=== PATIENT | male | born 1950 | race Caucasian/White ===

== ENCOUNTER 2018-07-30 17:20 | Emergency (ER) | payer MEDICARE, OTHER ==
[2018-07-30 18:17] LABS: CHLORIDE,CL 95 mmol/L (98-107); SODIUM,NA 130 mmol/L (136-145)
[2018-07-30 18:20] VITALS: BP 138/74
[2018-07-30] MEDS ORDERED: Sodium Chloride 0.9% 10 ML Syringe FLUSH PRN (18:32)
[2018-07-30] MEDS ORDERED: Sodium Chloride 0.9% 1,000 ML IV ONE (18:48)
[2018-07-30] MEDS ORDERED: Sodium Bicarbonate 8.4% 50 MEQ/50 ML Syringe IVPUSH ONE (19:17)
[2018-07-30] MEDS ORDERED: 25% Dextrose in Water 10 ML Syringe IVPUSH ONE (19:24)
[2018-07-30] MEDS ORDERED: Insulin Regular, Human 100 Units/ML 3 ML Vial IV ONE (19:25)
[2018-07-30] MEDS ORDERED: Calcium Gluconate 1 GM in Sodium Chloride 0.9% 100 ML IV ONE (19:25)
[2018-07-30] MEDS ORDERED: Dextrose 5%-0.9% NaCl 1,000 ML IV SCH (19:30)
--- NOTE | 2018-07-30 19:52 | EDM.PDOC ---
ED HPI GENERAL MEDICAL PROBLEM - General Chief Complaint: ENT Problem Stated Complaint: nosebleed Time Seen by Provider: 07/30/18 17:45 Source of Information: Reports: Other ([facility] staff. ) History Limitations: Reports: Other (poorly communicative, difficult to understand) - History of Present Illness INITIAL COMMENTS - FREE TEXT/NARRATIVE: Patient brought to ER from [facility] after experiencing a nosebleed all afternoon. Per staff they went through 10 "tampons" while waiting to see if it would stop. Has had nosebleeds in past, no recent issues reported. Wears O2 via [place]. On Coumadin 2mg daily. No recent colds/illnesses/trauma. No other reported changes in health per staff /patient. No fevers/weight changes. No new fatigue. Denies headache/vision changes/hearing changes. No increase in baseline SOB. No cough/reported aspiration of blood. Denies new pain. No chest/abdominal pain. No new back pain. Denies UTI complaints. No changes in eating/nausea/emesis/bowel movements. No new neuro complaints/weakness. - Related Data Allergies Allergy/AdvReac Type Severity Reaction Status Date / Time Penicillins Allergy Cannot Verified 07/30/18 18:27 Remember Home Meds: Home Meds Bisacodyl [Laxative] 5 - 10 mg PO DAILY PRN 10/02/14 [History] Cholecalciferol (Vitamin D3) [Vitamin D-3] 2,000 unit PO DAILY 10/02/14 [History ] Desonide [Desonide 0.05%] 1 applic TP BID PRN 10/02/14 [History] Dextran 70/Hypromellose [Artificial Tears Eye Drops] 1 drop OP BID PRN 10/02/14 [History] Insulin Glarg,Human.Rec.Analog [LantUS] 65 unit SUBCUT DAILY@199910/02/14 [ History] Insulin Glarg,Human.Rec.Analog [LantUS] 76 unit SUBCUT DAILY@0810/02/14 [ History] Metoclopramide HCl [Reglan] 10 mg PO QID 10/02/14 [History] Multivitamin with Minerals [Multiple Vitamin] 1 tab PO DAILY 10/02/14 [History] Omeprazole 20 mg PO BID 10/02/14 [History] Polyethylene Glycol 3350 [Miralax] 17 gm PO Q3H PRN 10/02/14 [History] Warfarin [Coumadin] 2.5 mg PO 1800 10/02/14 [History] cloNIDine HCl [Catapres] 0.2 mg PO BID 10/02/14 [History] Acetaminophen [Tylenol Arthritis] 650 mg PO BID 01/26/16 [History] Isosorbide Mononitrate [Isosorbide Mononitrate ER] 60 mg PO DAILY 01/26/16 [ History] Loratadine 10 mg PO DAILY PRN 01/26/16 [History] Magnesium Hydroxide [Milk of Magnesia] 30 ml PO DAILY PRN 01/26/16 [History] Nitroglycerin 0.4 mg SL ASDIRECTED PRN 01/26/16 [History] Sennosides/Docusate Sodium [Senna-S] 2 each PO BID 01/26/16 [History] Calcium Carbonate [Tums Extra Strength] 300 mg PO ASDIRECTED 03/20/16 [History] Sodium Chloride [Saline Nasal [place]] 1 - 2 sprays NASBOTH ASDIRECTED PRN [History] Carvedilol 25 mg PO BID 05/20/16 [History] Gabapentin [Neurontin] 400 mg PO BID 05/20/16 [History] Lisinopril 5 mg PO DAILY 05/20/16 [History] atorvaSTATin [Lipitor] 40 mg PO 1800 05/20/16 [History] hydrALAZINE HCl [Hydralazine HCl] 50 mg PO TID 05/20/16 [History] Acetaminophen [Tylenol] 650 mg PO Q4H PRN 07/30/18 [History] Allopurinol [Zyloprim] 200 mg PO DAILY 07/30/18 [History] Aloe Vera/Sodium Chloride [[place] Saline Nasal Gel] 1 applic LOVELY ASDIRECTED PRN [History] Alum Hydrox/Mag Hydrox/Simeth [Mag-Al Plus] 30 ml PO QID PRN 07/30/18 [History] Budesonide/Formoterol Fumarate [Symbicort 80-4.5 Mcg Inhaler] 1 puff IH BID [History] Bumetanide 6 mg PO DAILY 07/30/18 [History] Chlorpheniramine/Pseudoephed [Sudogest Sinus & Allergy] 1 each PO Q4H PRN [History] Clopidogrel [Plavix] 75 mg PO DAILY 07/30/18 [History] Gabapentin [Neurontin] 100 mg PO TID 07/30/18 [History] Insulin Aspart [NovoLOG] 10 unit SQ TIDMEALS 07/30/18 [History] Ipratropium/Albuterol Sulfate [Iprat-Albut 0.5-3(2.5) MG/3 ML] 3 ml IH Q4H PRN 07/30/18 [History] Ipratropium/Albuterol Sulfate [Iprat-Albut 0.5-3(2.5) MG/3 ML] 3 ml IH TID 07/30 [History] Melatonin 5 mg PO BEDTIME 07/30/18 [History] Past Medical History HEENT History: Reports: Allergic Rhinitis, Other (See Below) Other HEENT History: Dry eye syndrome, Sicca syndrome Cardiovascular History: Reports: Afib, Arrhythmia, CAD, Cardiomyopathy, Heart Failure, High Cholesterol, Hypertension, HI, Pacemaker, Pulmonary Hypertension, Other (See Below) Other Cardiovascular History: History of PVCs and cardiomegaly with recurrent CHF and dependent edema, distant HI with date unknown and no apparent procedures performed other than pacemaker placement Respiratory History: Reports: COPD, SOB Gastrointestinal History: Reports: Cholelithiasis, Chronic Constipation, Chronic Diarrhea, Gastritis, GERD, Other (See Below) Other Gastrointestinal History: Hepatomegaly with history of obesity and hyperlipidemia, umbilical hernia Genitourinary History: Reports: Chronic Renal Insuffiency, Diabetic Nephropathy , Other (See Below) Other Genitourinary History: Stage III History diabetic nephropathy/renal insufficiency Musculoskeletal History: Reports: Amputation, Arthritis, Fracture, Gout, Neck Pain, Chronic, Osteoarthritis, Osteoporosis, Other (See Below) Other Musculoskeletal History: Amputations of the right foot as below secondary to osteomyelitis/diabetic foot ulcer likely pseudomonas, Dupuytren contracture, left seventh and eighth rib fractures 03/09/14 Neurological History: Reports: Neuropathy, Diabetic, Neuropathy, Peripheral, TIA , Other (See Below) Other Neuro History: Recurrent TIAs without deficit Psychiatric History: Reports: Addiction, Anxiety, Depression Other Psychiatric History: ALCOHOL DEPENDENCE, chronic narcotic use secondary to chronic pain syndrome Endocrine/Metabolic History: Reports: Diabetes, Type II, IDDM, Obesity/BMI 30+, Osteoporosis, Vitamin D Deficiency, Other (See Below) Other Endocrine/Metabolic History: Recurrent hypokalemia and hyperkalemia likely secondary to CHF/medical therapy Hematologic History: Reports: None Immunologic History: Reports: None Dermatologic History: Reports: Cellulitis, Chronic Cellulitis, Decubitus Ulcer, Seborrheic Dermatitis, Venous Stasis Dermatitis, Other (See Below) Other Dermatologic History: Patient with history of recurrent diabetic ulcers including severe diabetic foot ulcer of the right foot including osteomyelitis requiring amputation as below - Infectious Disease History Infectious Disease History: Reports: Chicken Pox, Measles, Other (See Below) Other Infectious Disease History: Pseudomonas of the right foot - Past Surgical History Musculoskeletal Surgical History: Reports: Amputation, Other (See Below) - Past Imaging History Past Imaging History: Reports: CAT Scan, Ultrasound, Venous Doppler Social & Family History - Family History Family Medical History: Unobtainable - Tobacco Use Smoking Status *Q: Unknown Ever Smoked - Alcohol Use Alcohol Use History: Yes Alcohol Use Comment: Previous history of ETOH dependence/abuse - Recreational Drug Use Recreational Drug Use: No - Living Situation & Occupation Occupation: Retired ED ROS ENT - Review of Systems Review Of Systems: ROS reveals no pertinent complaints other than HPI. ED EXAM, ENT - Physical Exam Exam: See Below Exam Limited By: Other (Morbidly obese, cannot move around well, sitting in wheelchair.) General Appearance: Alert, Obese, Other (active nosebleed left nare) Eye Exam: Bilateral Eye: EOMI, PERRL Ears: Normal External Exam Nose: Active Bleeding. No: Nasal Deformity, Nasal Swelling Mouth/Throat: Other (blood in oropharynx). No: Tongue Swelling, Uvular Deviation Head: Atraumatic, Normocephalic Neck: Supple Respiratory/Chest: No Respiratory Distress, Lungs Clear, Normal Breath Sounds, No Accessory Muscle Use, Other (poor inspiratory effort) Cardiovascular: Irregularly Irregular. No: Diastolic Murmur, Systolic Murmur GI/Abdominal: Normal Bowel Sounds, Soft, Non-Tender (Male) Exam: Deferred Rectal (Males) Exam: Deferred Back: No: Muscle Spasm, Paraspinal Tenderness, Vertebral Tenderness Extremities: Non-Tender, Pedal Edema (bilateral lower leg wraps in place) Neurological: Alert, Oriented Psychiatric: Other (quiet) Skin: Warm, Dry ED ENT PROCEDURES - Epistaxis Procedure Indication: Epistaxis, Uncontrolled Recent anticoagulants/antiplatlets: Yes Uncontrolled HTN: No Recent septal/nasal surgery: No Site of bleeding: Left Nare Clearing of clots: Other ( wiped away) Ice pack to area: No Posterior packing: Long Inflatable Nasal Tampon (placed on both sides) EKG INTERPRETATION EKG Date: 07/30/18 Time: 18:26 Rhythm: Other (EKG interprets rhythm as sinus/1st degree block. No obvious P waves identified, suspect Afib.) Rate (Beats/Min): 114 [place]: Normal P-Wave: Absent QRS: Other (low voltage) ST-T: Normal QT: Normal Comparison: Other: (Was in afib previously in 2016) Course - Vital Signs Last Recorded V/S: Last Vital Signs Temp 36.9 C 07/30/18 18:18 Pulse 91 07/30/18 18:18 Resp 18 07/30/18 18:18 BP 138/74 07/30/18 18:18 Pulse Ox 88 L 07/30/18 18:18 - Orders/Labs/Meds Orders: Active Orders 24 hr Category Date Time Status EKG Documentation Completion [RC] ASDIRECTED Care 07/30/18 17:53 Ordered Chest 1V Frontal [CR] Urgent Exams 07/30/18 17:54 Ordered Sodium Chloride 0.9% [Normal Saline] 1,000 ml Med 07/30/18 18:48 Ordered IV .BOLUS Sodium Chloride 0.9% [Saline Flush] Med 07/30/18 18:32 Ordered 10 ml FLUSH ASDIRECTED PRN Saline Lock Insert [OM.PC] Routine Oth 07/30/18 18:32 Ordered EKG 12 Lead [EK] Stat Ther 07/30/18 17:51 Ordered EKG 12 Lead [EK] Stat Ther 07/30/18 17:51 Stop Req Medication Orders Sodium Chloride (Normal Saline) 1,000 mls @ 200 mls/hr IV .BOLUS ONE Stop: 07/30/18 23:47 Sodium Chloride (Saline Flush) 10 ml FLUSH ASDIRECTED PRN PRN Reason: Keep Vein Open Labs: Laboratory Tests 07/30/18 07/30/18 07/30/18 Range/Units 17:50 17:50 17:50 WBC 12.6 H (4.0-10.2) K/uL RBC 2.99 L (4.33-5.41) M/uL Hgb 9.5 L (13.1-16.8) g/dL Hct 30.2 L (39.0-49.0) % MCV 101.0 H (84.0-98.0) fL MCH 31.8 (28.2-33.3) pg MCHC 31.5 L (31.7-36.0) g/dL RDW 14.9 H (11.2-14.1) % Plt Count 197 (150-350) K/uL Neut % (Auto) 81.5 H (45.0-80.0) % Lymph % (Auto) 9.7 L (10.0-50.0) % Jerome % (Auto) 7.2 (2.0-14.0) % Eos % (Auto) 1.1 (0.0-5.0) % Baso % (Auto) 0.5 (0.0-2.0) % Neut # (Auto) 10.26 H (1.40-7.00) K/uL Lymph # (Auto) 1.22 (0.50-3.50) K/uL Jerome # (Auto) 0.91 (0.00-1.00) K/uL Eos # (Auto) 0.14 (0.00-0.50) K/uL Baso # (Auto) 0.06 (0.00-0.20) K/uL PT 21.3 H (9.5-12.0) SEC INR 2.0 Sodium 130 L (136-145) mmol/L Potassium 6.2 H* D (3.5-5.1) mmol/L Chloride 95 L (98-107) mmol/L Carbon Dioxide 29.1 (21.0-32.0) mmol/L BUN 119 H* (7-18) mg/dL Creatinine 2.79 H (0.51-1.17) mg/dL Est Cr Clr Drug Dosing TNP Estimated GFR (MDRD) 23 mL/min Glucose 174 H (74-106) mg/dL Calcium 9.2 (8.5-10.1) mg/dL Total Bilirubin 0.4 (0.2-1.0) mg/dL AST 13 L (15-37) U/L ALT 22 (12-78) U/L Alkaline Phosphatase 58 (46-116) IU/L Troponin I 0.006 (0.000-0.056) ng/mL NT-Pro-B Natriuret Pep 3479 H (0-125) pg/mL Total Protein 7.4 (6.4-8.2) g/dL Albumin 3.4 (3.4-5.0) g/dL Meds: Medications Generic Name Dose Route Start Last Admin Trade Name Freq PRN Reason Stop Dose Admin Sodium Chloride 1,000 mls @ 200 mls/hr 07/30/18 18:48 Normal Saline IV 07/30/18 23:47 .BOLUS ONE Sodium Chloride 10 ml 07/30/18 18:32 Saline Flush FLUSH ASDIRECTED PRN Keep Vein Open - Radiology Interpretation Free Text/Narrative:: Chest xray: portable, poor inspiration, does not appear significantly changed from previous film last month. Increased cardiac size/CHF. - Re-Assessments/Exams Free Text/Narrative Re-Assessment/Exam: 07/30/18 20:18 Patient noted to have significant bleeding from left nare upon arrival. Given the amount of bleeding noted, inflatable nasal tampons were placed in both nares and inflated to offer best chance for quick control of bleed. Immediate improvement noted. No further active bleeding from nares noted. Posterior pharynx also appeared to clear. Baseline labs requested. Chest xray also requested to look for any sign of acute aspiration. WBC mildly elevated. However K significantly elevated as was BUN/Cr. When compared to previous lab levels in patient's chart this was an obvious acute change. Na and Chloride low. Hgb 9.5 (was 9.0 several weeks ago) Troponin within normal limits. ProBNP elevated, however patient does have known history of CHF. Call placed to [facility]. Patient declined by given the acute renal issues. Call then placed to [facility]. Discussed patient with . [facility] elected to have patient admitted through ER given the recent significant nosebleed prior to deciding floor placement. requested that we give a combination of Insulin/Dextrose, Sodium Bicarb , and Calcium Gluconate IV to help with potassium levels prior to transfer. Vital signs remained stable throughout stay. Departure - Departure Time of Disposition: 20:29 Disposition: DC/Tfer to [facility] 02 Condition: Good Clinical Impression: Epistaxis, Hyperkalemia Acute renal failure Qualifiers: Acute renal failure type: unspecified Qualified Code(s): N17.9 - Acute kidney failure, unspecified Anemia Qualifiers: Anemia type: unspecified type Qualified Code(s): D64.9 - Anemia, unspecified - Discharge Information *PRESCRIPTION DRUG MONITORING PROGRAM REVIEWED*: Not Applicable *COPY OF PRESCRIPTION DRUG MONITORING REPORT IN PATIENT LEXII: Not Applicable Referrals: Chloé Bro MD [Primary Care Provider] - - My Orders Last 24 Hours: My Active Orders 07/30/18 17:51 EKG 12 Lead [EK] Stat EKG 12 Lead [EK] Stat 07/30/18 17:53 EKG Documentation Completion [RC] ASDIRECTED 07/30/18 17:54 Chest 1V Frontal [CR] Urgent 07/30/18 18:32 Sodium Chloride 0.9% [Saline Flush] 10 ml FLUSH ASDIRECTED PRN Saline Lock Insert [OM.PC] Routine 07/30/18 18:48 Sodium Chloride 0.9% [Normal Saline] 1,000 ml IV .BOLUS - Assessment/Plan Last 24 Hours: My Active Orders 07/30/18 17:51 EKG 12 Lead [EK] Stat EKG 12 Lead [EK] Stat 07/30/18 17:53 EKG Documentation Completion [RC] ASDIRECTED 07/30/18 17:54 Chest 1V Frontal [CR] Urgent 07/30/18 18:32 Sodium Chloride 0.9% [Saline Flush] 10 ml FLUSH ASDIRECTED PRN Saline Lock Insert [OM.PC] Routine 07/30/18 18:48 Sodium Chloride 0.9% [Normal Saline] 1,000 ml IV .BOLUS
== END 2018-07-30 21:00 ==
LOC: LL.ED 17:20
DX: R04.0 Epistaxis (principal); N17.9 Acute kidney failure, unspecified; I13.0 Hypertensive heart and chronic kidney disease with heart failure and stage 1 through stage 4 chronic kidney disease, or unspecified chronic kidney disease; I50.9 Heart failure, unspecified; E11.22 Type 2 diabetes mellitus with diabetic chronic kidney disease; N18.3 Chronic kidney disease, stage 3 (moderate); I48.91 Unspecified atrial fibrillation; I25.10 Atherosclerotic heart disease of native coronary artery without angina pectoris; I25.2 Old myocardial infarction; E87.5 Hyperkalemia; D63.1 Anemia in chronic kidney disease; Z88.0 Allergy status to penicillin; Z79.899 Other long term (current) drug therapy; Z79.01 Long term (current) use of anticoagulants
CPT/HCPCS: 30901; 36415; 71045; 80053; 83880; 84484; 85025; 85610; 93005; 93010; 96365; 96375; 99284; 99285; A4216; J0610; J1815-GY; J7042; J7050

== ENCOUNTER 2018-08-16 10:53 | Emergency (ER) | payer MEDICARE ==
--- NOTE | 2018-08-16 11:05 | EDM.PDOC ---
ED HPI GENERAL MEDICAL PROBLEM - General Chief Complaint: General Stated Complaint: lethergy, abnormal labs Time Seen by Provider: 08/16/18 11:00 Source of Information: Reports: Patient, EMS, Custodial Records, Old Records ([facility] chart/EMR). Denies: EMS Notes Reviewed History Limitations: Reports: Altered Mental Status - History of Present Illness INITIAL COMMENTS - FREE TEXT/NARRATIVE: The patient was brought to the emergency room via ambulance with supply chain associate accompaniment with O2 at 4 L/m by nasal cannula initiated prior to transfer. Blood Work had been ordered by his regular provider earlier this morning with evidence of significant acute renal failure with instructions given to the senior living staff to transport the patient to our emergency room for further evaluation. Note the patient was initially evaluated in our facility on 07/30/18 for acute renal failure with patient transferred to [facility] in [place] for further treatment and evaluation. He was discharged on 06/09/19 with strict instructions of limiting his supplemental oxygen to 1 L/m by nasal cannula secondary to his history of CO2 retention. He is an extremely poor historian secondary to his current confusion from his renal failure, CO2 retention, etc. The patient denies any chest pain/pressure, heart flutter, dizziness, orthostasis, orthopnea, diaphoresis, paresthesias, recent decreased exercise tolerance, or any other anginal-type symptoms. No recent history of abdominal pain, heartburn, nausea, diarrhea, melena, gross hematochezia, or any food intolerance, including fatty foods, etc.. The patient also denies any recent fever, cough, wheezing, etc. although some possible mild dyspnea. and transferred. No apparent recent signs of infection, including UTI symptoms, etc. He denies any specific pain or discomfort. O2 sat was in the low 80 percentile prior to transfer per history from the paramedics. Onset: Today, Unknown/Unsure Duration: Getting Worse Location: Reports: Other (No pain) Quality: Reports: Same as Previous Episode Severity: Severe Improves with: Reports: None Worsens with: Reports: None Context: Reports: Other (As above). Denies: Sick Contact, Trauma Associated Symptoms: Reports: Confusion, Shortness of Breath. Denies: Chest Pain, Cough, Diaphoresis, Fever/Chills, Headaches, Loss of Appetite, Malaise, Nausea/Vomiting, Rash, Seizure, Syncope - Related Data Allergies Allergy/AdvReac Type Severity Reaction Status Date / Time Penicillins Allergy Cannot Verified 07/30/18 18:27 Remember Home Meds: Home Meds Bisacodyl [Laxative] 5 - 10 mg PO DAILY PRN 10/02/14 [History] Desonide [Desonide 0.05%] 1 applic TP BID PRN 10/02/14 [History] Dextran 70/Hypromellose [Artificial Tears Eye Drops] 1 drop OP BID PRN 10/02/14 [History] Insulin Glarg,Human.Rec.Analog [LantUS] 30 unit SUBCUT DAILY@0810/02/14 [ History] Insulin Glarg,Human.Rec.Analog [LantUS] 30 unit SUBCUT DAILY@199910/02/14 [ History] Metoclopramide HCl [Reglan] 10 mg PO QID 10/02/14 [History] Omeprazole 20 mg PO BID 10/02/14 [History] Polyethylene Glycol 3350 [Miralax] 17 gm PO Q3H PRN 10/02/14 [History] Acetaminophen [Tylenol Arthritis] 650 mg PO BID 01/26/16 [History] Loratadine 10 mg PO DAILY PRN 01/26/16 [History] Magnesium Hydroxide [Milk of Magnesia] 30 ml PO DAILY PRN 01/26/16 [History] Nitroglycerin 0.4 mg SL ASDIRECTED PRN 01/26/16 [History] Sennosides/Docusate Sodium [Senna-S] 2 each PO BID 01/26/16 [History] Calcium Carbonate [Tums Extra Strength] 750 mg PO Q6HR PRN 03/20/16 [History] atorvaSTATin [Lipitor] 40 mg PO 1800 05/20/16 [History] Acetaminophen [Tylenol] 650 mg PO Q4H PRN 07/30/18 [History] Allopurinol [Zyloprim] 200 mg PO DAILY 07/30/18 [History] Aloe Vera/Sodium Chloride [[place] Saline Nasal Gel] 1 applic LOVELY ASDIRECTED PRN [History] Alum Hydrox/Mag Hydrox/Simeth [Mag-Al Plus] 30 ml PO TID PRN 07/30/18 [History] Budesonide/Formoterol Fumarate [Symbicort 80-4.5 Mcg Inhaler] 1 puff IH BID [History] Bumetanide 3 mg PO DAILY 07/30/18 [History] Gabapentin [Neurontin] 100 mg PO TID 07/30/18 [History] Insulin Aspart [NovoLOG] 5 unit SQ BIDMEALS 07/30/18 [History] Ipratropium/Albuterol Sulfate [Iprat-Albut 0.5-3(2.5) MG/3 ML] 3 ml IH Q4H PRN 07/30/18 [History] Ipratropium/Albuterol Sulfate [Iprat-Albut 0.5-3(2.5) MG/3 ML] 3 ml IH TID 07/30 [History] Melatonin 5 mg PO BEDTIME 07/30/18 [History] Aspirin 1 tab PO DAILY 08/16/18 [History] Glycerin/Witch Opal [place] [Hemorrhoidal Pads] 1 - 2 each TP ASDIRECTED PRN 08/16 [History] Phenyleph/Pramoxin/Glycr/w.Pet [Hemorrhoidal Cream] 1 applic RECTAL BID PRN 05/24 [History] Phenylephrine HCl [Sudogest PE] 1 tab PO Q4HR PRN 08/16/18 [History] Warfarin [Coumadin] 3 mg PO DAILY@199908/16/18 [History] Past Medical History HEENT History: Reports: Allergic Rhinitis, Other (See Below) Other HEENT History: Dry eye syndrome, Sicca syndrome Cardiovascular History: Reports: Afib, Arrhythmia, CAD, Cardiomyopathy, Heart Failure, High Cholesterol, Hypertension, [place], Pacemaker, Pulmonary Hypertension, PVD, Other (See Below). Denies: Aneurysm, Blood Clots/VTE/DVT Other Cardiovascular History: History of PVCs and cardiomegaly with recurrent CHF and dependent edema, distant WA with date unknown and no apparent procedures performed other than pacemaker placement. Respiratory History: Reports: Asthma, Bronchitis, Recurrent, COPD, Intubation, Previous, SOB, Other (See Below). Denies: Intubation, Difficult, PE, Pneumothorax, Sleep Apnea, TB Other Respiratory History: CO2 retention. Gastrointestinal History: Reports: Cholelithiasis, Chronic Constipation, Chronic Diarrhea, Gastritis, GERD, Other (See Below). Denies: PUD Other Gastrointestinal History: Hepatomegaly with history of obesity and hyperlipidemia, umbilical hernia Genitourinary History: Reports: Acute Renal Failure, BPH, Chronic Renal Insuffiency, Diabetic Nephropathy, Other (See Below) Other Genitourinary History: Acute renal failure on 07/30/18. Stage III History diabetic nephropathy/renal insufficiency Musculoskeletal History: Reports: Amputation, Arthritis, Fracture, Gout, Neck Pain, Chronic, Osteoarthritis, Osteoporosis, Other (See Below) Other Musculoskeletal History: Amputations of the right foot as below secondary to osteomyelitis/diabetic foot ulcer likely pseudomonas, Dupuytren contracture, left seventh and eighth rib fractures 03/09/14 Neurological History: Reports: Neuropathy, Diabetic, Neuropathy, Peripheral, TIA , Other (See Below) Other Neuro History: Recurrent TIAs without deficit Psychiatric History: Reports: Addiction, Anxiety, Depression Other Psychiatric History: ALCOHOL DEPENDENCE, chronic narcotic use secondary to chronic pain syndrome Endocrine/Metabolic History: Reports: Diabetes, Type II, IDDM, Obesity/BMI 30+, Osteoporosis, Vitamin D Deficiency, Other (See Below). Denies: Diabetes, Type I , Diabetes Mellitus, Type 3c, Hypothyroidism Other Endocrine/Metabolic History: Recurrent hypokalemia and hyperkalemia likely secondary to CHF/medical therapy. Hypomagnesemia. Hematologic History: Reports: None. Denies: Anemia, Iron Deficiency Immunologic History: Reports: None. Denies: AIDS, HIV, SLE Dermatologic History: Reports: Cellulitis, Chronic Cellulitis, Decubitus Ulcer, Seborrheic Dermatitis, Venous Stasis Dermatitis, Other (See Below) Other Dermatologic History: Patient with history of recurrent diabetic ulcers including severe diabetic foot ulcer of the right foot including osteomyelitis requiring amputation as below - Infectious Disease History Infectious Disease History: Reports: Chicken Pox, Measles, Other (See Below) Other Infectious Disease History: Pseudomonas of the right foot - Past Surgical History HEENT Surgical History: Reports: Oral Surgery, Other (See Below) Other HEENT Surgeries/Procedures: Complete teeth extraction Musculoskeletal Surgical History: Reports: Amputation, Other (See Below) Other Musculoskeletal Surgeries/Procedures:: Amputations of digits #2 and 3 of the right foot secondary to osteomyelitis and diabetic foot ulcer likely secondary to Pseudomonas. - Past Imaging History Past Imaging History: Reports: Cardiac Echo (Inadequate echocardiogram on ), CAT Scan (Abdomen and pelvis on 10/02/14.), Ultrasound (Renal ultrasound on 01/12/14. Gallbladder ultrasound on 10/03/04.), Venous Doppler (Left leg on .) Social & Family History - Family History Family Medical History: Unobtainable - Tobacco Use Smoking Status *Q: Never Smoker Tobacco Use Within Last Twelve Months: No Smoking Cessation Information Provided To Patient: No Second Hand Smoke Exposure: No Second Hand Smoke Education Provided: No - Alcohol Use Alcohol Use History: Yes Days Per Week of Alcohol Use: 7 Number of Drinks Per Day: 1 Number of Drinks Per Day Comment: Previous history of alcohol abuse. Total Drinks Per Week: 7 Alcohol Use in Last Twelve Months: Yes - Recreational Drug Use Recreational Drug Use: No Drug Use in Last 12 Months: No - Living Situation & Occupation Living situation: Reports: Extended Care Facility ([facility] in [place]) Occupation: Retired ED ROS GENERAL - Review of Systems Review Of Systems: ROS reveals no pertinent complaints other than HPI. ED EXAM, GENERAL - Physical Exam Exam: See Below Exam Limited By: Altered Mental Status General Appearance: WD/WN, No Apparent Distress, Lethargic (Mild) Eye Exam: Bilateral Eye: EOMI, Normal Fundi, Normal Inspection (No nystagmus), Periorbital Changes Ears: Normal External Exam, Normal Canal, Hearing Grossly Normal, Normal TMs Nose: Normal Inspection, Normal Mucosa, No Blood Throat/Mouth: Normal Lips, Normal Gums, Normal Oropharynx, Normal Voice, No Airway Compromise. No: Normal Teeth (Complete absent dentition with no dentures present), Dysphagia, Inflammation, Perioral Cyanosis Head: Atraumatic, Normocephalic. No: Facial Swelling, Facial Tenderness, Sinus Tenderness Neck: Supple, Non-Tender, Full Range of Motion, Carotid Bruit (Mild bilateral carotid bruits). No: Lymphadenopathy (L), Lymphadenopathy (R), Thyromegaly Respiratory/Chest: No Respiratory Distress, No Accessory Muscle Use, Chest Non- Tender, Rales (Moderate diffuse bilateral basilar rales particularly in the bases). No: Rhonchi, Wheezing, Pleural Rub Cardiovascular: No Gallop, No JVD, No Murmur, No Rub, Irregularly Irregular. No : No Edema (Dependent edema as below), Gallop/S3, Gallop/S4, Friction Rub Peripheral Pulses: 1+: Dorsalis Pedis (L) (Difficult to palpate), Dorsalis Pedis (R) (Difficult to palpate), 2+: Radial (L), Radial (R) GI/Abdominal: Normal Bowel Sounds, Soft, Non-Tender, No Organomegaly, No Distention, No Abnormal Bruit, No Mass, Pelvis Stable, Hernia (2 Centimeter in diameter nonincarcerated umbilical hernia), Other (Obese). No: Guarding (Male) Exam: Deferred Rectal (Males) Exam: Deferred Back Exam: Normal Inspection, Full Range of Motion. No: CVA Tenderness (L), CVA Tenderness (R), Muscle Spasm Extremities: Normal Range of Motion, Non-Tender, Normal Capillary Refill, Pedal Edema (Probable bilateral lymphedema of lower extremities with Javier wraps on the tibial and fibular regions bilaterally to the feet), Other (Amputation of digits #2 and 3 of the right foot ). No: Darby's Sign Neurological: Alert, CN II-XII Intact, Normal Reflexes (Negative Babinski's patient not able to perform complete neurological exam), Confused (Mild to moderate) Psychiatric: Normal Affect, Normal Mood Skin Exam: Warm, Dry, Intact, Normal Color, No Rash. No: Diaphoretic, Wound/ Incision (Javier wraps not removed) Lymphatic: No Adenopathy EKG INTERPRETATION EKG Date: 08/16/18 Time: 11:21 Rhythm: A-Fib Rate (Beats/Min): 80 [place]: Normal (Intracardiac axis) P-Wave: Variable QRS: Normal (0.09 seconds with T-wave inversion in lead V1 with new T-wave inversion in lead aVL) ST-T: Other (As above) QT: Normal SC/PQ Interval: Pulmonary hypertension by EKG with previous poor R-wave progression in the anterior leads Comparison: Change From Previous EKG (As above since 02/22/18) EKG Interpretation Comments: 1. No acute ischemic changes 2. Possible pulmonary hypertension by EKG 3. Demand pacemaker with no current pacer spikes Course - Vital Signs Last Recorded V/S: Last Vital Signs Temp 36.9 C 08/16/18 11:17 Pulse 65 08/16/18 11:50 Resp 16 08/16/18 11:50 BP 134/50 L 08/16/18 11:50 Pulse Ox 90 L 08/16/18 11:50 Vital Signs - 24 hr 08/16/18 08/16/18 08/16/18 11:11 11:17 11:36 Temperature [ 36.9 C 36.9 C Oral] Pulse, 71 73 70 Peripheral [ Right Pulse Oximetry] Respiratory 14 18 18 Rate Blood Pressure 129/48 L 105/81 128/56 L [Right Upper Arm] O2 Sat by Pulse 93 L 93 L 92 L Oximetry 08/16/18 11:50 Temperature [ Oral] Pulse, 65 Peripheral [ Right Pulse Oximetry] Respiratory 16 Rate Blood Pressure 134/50 L [Right Upper Arm] O2 Sat by Pulse 90 L Oximetry - Orders/Labs/Meds Orders: Active Orders 24 hr Category Date Time Status EKG Documentation Completion [RC] ASDIRECTED Care 08/16/18 11:11 Active Chest 1V Frontal [CR] Stat Exams 08/16/18 11:11 Taken CULTURE BLOOD [BC] Stat Lab 08/16/18 11:20 Received Labs: Laboratory Tests 08/16/18 08/16/18 08/16/18 Range/Units 09:55 09:55 09:55 INR D-Dimer, Quantitative 602 H (0-400) ng/mL Lactic Acid (0.4-2.0) mmol/L Phosphorus 7.7 H (2.6-4.7) mg/dL Creatine Kinase 58 (26-308) U/L Creatine Kinase Index 2.4 (0.0-2.5) % CK-MB (CK-2) 1.40 (0.00-3.60) ng/mL Troponin I 0.045 (0.000-0.056) ng/mL NT-Pro-B Natriuret Pep 21012 H (0-125) pg/mL 08/16/18 08/16/18 Range/Units 11:20 13:15 INR 2.9 D-Dimer, Quantitative (0-400) ng/mL Lactic Acid 1.8 (0.4-2.0) mmol/L Phosphorus (2.6-4.7) mg/dL Creatine Kinase (26-308) U/L Creatine Kinase Index (0.0-2.5) % CK-MB (CK-2) (0.00-3.60) ng/mL Troponin I (0.000-0.056) ng/mL NT-Pro-B Natriuret Pep (0-125) pg/mL Note previous blood work earlier this morning ordered by [facility] shows stable hemoglobin of 9.6, mildly elevated WBCs of 12.0 with neutrophils of 9.45, sodium 122 likely secondary to his CHF, potassium 6.2, BUN 91, creatinine 6.06, random glucose of 134, calcium 7.8., Total protein 6.3, albumin 2.8, with venous blood gases versus ABGs indicating a pH of 7.24 and elevated PCO2 of 53% , base excess of -5, and O2 sat of 100% on room air? Laboratory Results - last 24 hr 08/16/18 08/16/18 08/16/18 Range/Units 09:55 09:55 09:55 INR D-Dimer, Quantitative 602 H (0-400) ng/mL Lactic Acid (0.4-2.0) mmol/L Phosphorus 7.7 H (2.6-4.7) mg/dL Creatine Kinase 58 (26-308) U/L Creatine Kinase Index 2.4 (0.0-2.5) % CK-MB (CK-2) 1.40 (0.00-3.60) ng/mL Troponin I 0.045 (0.000-0.056) ng/mL NT-Pro-B Natriuret Pep 01189 H (0-125) pg/mL 08/16/18 08/16/18 Range/Units 11:20 13:15 INR 2.9 D-Dimer, Quantitative (0-400) ng/mL Lactic Acid 1.8 (0.4-2.0) mmol/L Phosphorus (2.6-4.7) mg/dL Creatine Kinase (26-308) U/L Creatine Kinase Index (0.0-2.5) % CK-MB (CK-2) (0.00-3.60) ng/mL Troponin I (0.000-0.056) ng/mL NT-Pro-B Natriuret Pep (0-125) pg/mL Blood cultures 1 were collected Meds: Medications Discontinued Medications Generic Name Dose Route Start Last Admin Trade Name Freq PRN Reason Stop Dose Admin Furosemide 60 mg 08/16/18 12:06 08/16/18 12:19 Lasix IVPUSH 08/16/18 12:07 60 mg NOW ONE Administration Sodium Polystyrene Sulfonate 15 gm 08/16/18 12:06 08/16/18 12:20 Kayexalate PO 08/16/18 12:07 15 gm ONETIME ONE Administration - Radiology Interpretation Free Text/Narrative:: interventional neuroradiologist shows atrial fibrillation with heart rate in the 60s to 80s with no ectopy or arrhythmia Chest x-ray, portable, shows severe cardiomegaly with moderate CHF, including moderate left lower lobe pleural effusion and atelectasis. Moderate COPD changes with pulmonary infiltrates difficult to assess secondary to CHF. Moderate proximal aortic valve prominence with additional moderate COPD changes. No pneumothorax. Pacemaker noted. Mild to moderately elevated right hemidiaphragm. Departure - Departure Time of Disposition: 13:45 Disposition: DC/Tfer to [facility] 02 Condition: Serious Clinical Impression: Acute renal failure, Anemia, CHF (congestive heart failure), Chronic kidney disease (CKD), COPD (chronic obstructive pulmonary disease), CAD (coronary artery disease), Diabetes mellitus, GERD (gastroesophageal reflux disease), IDDM (insulin dependent diabetes mellitus), Osteoarthritis, Peptic reflux disease, Hypoalbuminemia, D-dimer, elevated, Hyperlipidemia - Discharge Information *PRESCRIPTION DRUG MONITORING PROGRAM REVIEWED*: Not Applicable *COPY OF PRESCRIPTION DRUG MONITORING REPORT IN PATIENT LEXII: Not Applicable Referrals: Chloé Bro MD [Primary Care Provider] - Forms: ED Department Discharge, Interfacility Transfer EMTALA - Problem List & Annotations (1) Acute renal failure SNOMED Code(s): 92619452 Code(s): N17.9 - ACUTE KIDNEY FAILURE, UNSPECIFIED Status: Acute Priority : High Current Visit: Yes Onset Date: 07/30/18 Annotation/Comment:: Initially diagnosed on 07/30/18 as above with reoccurrence today. Telephone consultation at 11:[address] Joel, hospitalist at [facility] in [place], who does accept the patient for direct admission, with no further treatment recommendations given. He is in agreement with my plan of one dose of IV Lasix and oral Kayexalate. Ambulance transfer with supply chain associate accompaniment. Note some confusion secondary to his renal failure and probable mild CO2 retention. Patient will likely need acute dialysis, nephrology consultation, etc.. Note mild leukocytosis and borderline fever with no direct signs of infection. Blood cultures 1 collected second blood culture not obtained secondary to difficult blood draw. Note hyperphosphatemia. Further medication adjustments by accepting providers. Qualifiers: Acute renal failure type: unspecified Qualified Code(s): N17.9 - Acute kidney failure, unspecified (2) Anemia SNOMED Code(s): 056913294 Code(s): D64.9 - ANEMIA, UNSPECIFIED Status: Chronic Priority: Medium Current Visit: Yes Annotation/Comment:: Stable mild to moderate anemia likely secondary to renal disease, etc. No direct evidence of acute GI bleed. Note current Coumadin therapy with therapeutic INR today. Further workup and treatment depending on his clinical course. Qualifiers: Anemia type: other cause Other causes of anemia: other cause, not classified Qualified Code(s): D64.89 - Other specified anemias (3) CHF (congestive heart failure) SNOMED Code(s): 54959018 Code(s): I50.9 - HEART FAILURE, UNSPECIFIED Status: Acute Priority: High Current Visit: Yes Onset Date: 03/20/16 Annotation/Comment:: Recurrent CHF with known history of systolic and diastolic dysfunction. Cardiology consultation and further workup depending on his clinical course. Mild change in troponin I, which is still normal, with otherwise stable EKG and cardiac enzymes. No recent history of chest pain or anginal type symptoms. l Qualifiers: Heart failure type: combined systolic and diastolic Heart failure chronicity: acute on chronic Qualified Code(s): I50.43 - Acute on chronic combined systolic (congestive) and diastolic (congestive) heart failure (4) Chronic kidney disease (CKD) SNOMED Code(s): 610019004 Code(s): N18.9 - CHRONIC KIDNEY DISEASE, UNSPECIFIED Status: Chronic Priority: Medium Current Visit: Yes Annotation/Comment:: Known history of diabetic nephropathy. Nephrology consultation as above. Qualifiers: Chronic kidney disease stage: unspecified stage Qualified Code(s): N18.9 - Chronic kidney disease, unspecified (5) IDDM (insulin dependent diabetes mellitus) SNOMED Code(s): 77228221 Code(s): E11.9 - TYPE 2 DIABETES MELLITUS WITHOUT COMPLICATIONS; Z79.4 - HALF-WAY (CURRENT) USE OF INSULIN Status: Chronic Priority: Medium Current Visit: Yes Annotation/Comment:: Stable by history. Consider glycosylated hemoglobin, urine for microalbumin, etc. (6) CAD (coronary artery disease) SNOMED Code(s): 29374698 Code(s): I25.10 - ATHSCL HEART DISEASE OF [place] CORONARY ARTERY W/O ANG PCTRS Status: Chronic Priority: High Current Visit: Yes Annotation/ Comment:: As above. Qualifiers: Coronary Disease-Associated Artery/Lesion type: ione artery [place] vs. transplanted heart: ione heart Associated angina: without angina Qualified Code(s): I25.10 - Atherosclerotic heart disease of [place] coronary artery without angina pectoris (7) COPD (chronic obstructive pulmonary disease) SNOMED Code(s): 36799337 Code(s): J44.9 - CHRONIC OBSTRUCTIVE PULMONARY DISEASE, UNSPECIFIED Status : Chronic Priority: Medium Current Visit: Yes Annotation/Comment:: Note that per recommendations from discharging physicians at [facility] in [place] as above his O2 was decreased from 4 L/m by nasal cannula to 1 L/m by nasal cannula with stable O2 saturations prior to discharge. Note ABGs this morning indicating some CO2 retention and mild respiratory acidosis on room air with no further therapy at this time. Continue to observe closely by accepting providers. Somewhat unclear whether this is actually venous rather than arterial blood gas. Accepting physician is in agreement with this treatment plan. Qualifiers: COPD type: emphysema Emphysema type: panlobular Qualified Code(s): J43.1 - Panlobular emphysema (8) Atrial fibrillation SNOMED Code(s): 57278911 Code(s): I48.91 - UNSPECIFIED ATRIAL FIBRILLATION Status: Acute Priority : High Current Visit: No Annotation/Comment:: As above. Therapeutic INR today. Qualifiers: Atrial fibrillation type: chronic Qualified Code(s): I48.2 - Chronic atrial fibrillation (9) D-dimer, elevated SNOMED Code(s): 320220747 Code(s): R79.89 - OTHER SPECIFIED ABNORMAL FINDINGS OF BLOOD CHEMISTRY Status: Acute Priority: High Current Visit: Yes Onset Date: 08/16/18 Annotation/Comment:: Consider VQ scan and venous Doppler studies of the lower extremities. No direct indication of PE or DVT at this time, however difficult to assess. (10) Hypoalbuminemia SNOMED Code(s): 660953796 Code(s): E88.09 - [facility] DISORDERS OF PLASMA-PROTEIN METABOLISM, NEC Status: Acute Priority: Medium Current Visit: Yes Onset Date: 08/16/18 Annotation/Comment:: Observe for now (11) Osteoarthritis SNOMED Code(s): 233017079 Code(s): M19.90 - UNSPECIFIED OSTEOARTHRITIS, UNSPECIFIED SITE Status: Chronic Priority: Medium Current Visit: Yes Annotation/Comment:: Stable by history with history of hyperuricemia but no recent gout attacks. Qualifiers: Osteoarthritis location: multiple joints Osteoarthritis type: primary Qualified Code(s): M15.0 - Primary generalized (osteo)arthritis (12) Peptic reflux disease SNOMED Code(s): 451674659 Code(s): K21.9 - GASTRO-ESOPHAGEAL REFLUX DISEASE WITHOUT ESOPHAGITIS Status: Chronic Priority: Medium Current Visit: Yes Annotation/Comment:: Stable by history. Note anemia as above. (13) Hypertension SNOMED Code(s): 64837794 Code(s): I10 - ESSENTIAL (PRIMARY) HYPERTENSION Status: Chronic Priority : Medium Current Visit: Yes Annotation/Comment:: Blood Pressures variable during his ER care, however relatively stable at time of transfer. Qualifiers: Hypertension type: essential hypertension Qualified Code(s): I10 - Essential (primary) hypertension (14) Hyperlipidemia SNOMED Code(s): 25884193 Code(s): E78.5 - HYPERLIPIDEMIA, UNSPECIFIED Status: Chronic Priority: Medium Current Visit: Yes Annotation/Comment:: Consider Lipid panel by his accepting providers with weight loss in moderation advisable secondary to his morbid obesity. Qualifiers: Hyperlipidemia type: unspecified Qualified Code(s): E78.5 - Hyperlipidemia , unspecified - Problem List Review Problem List Initiated/Reviewed/Updated: Yes - My Orders Last 24 Hours: My Active Orders 08/16/18 11:11 EKG Documentation Completion [RC] ASDIRECTED Chest 1V Frontal [CR] Stat 08/16/18 11:20 CULTURE BLOOD [BC] Stat - Assessment/Plan Last 24 Hours: My Active Orders 08/16/18 11:11 EKG Documentation Completion [RC] ASDIRECTED Chest 1V Frontal [CR] Stat 08/16/18 11:20 CULTURE BLOOD [BC] Stat Assessment:: As above Plan: As above. Extensive precautions were given to the patient, who is in agreement with the treatment plan. Ambulance transfer with supply chain associate accompaniment as above.
[2018-08-16] MEDS ORDERED: Furosemide 40 MG/4 ML VIAL IVPUSH ONE (12:06)
[2018-08-16] MEDS ORDERED: Sodium Polystyrene Sulfonate 15 GM/60 ML Susp 60 ML Bot PO ONE (12:06)
[2018-08-16 18:44] VITALS: BP 164/66
== END 2018-08-16 13:45 ==
LOC: LL.ED 10:53
DX: N17.9 Acute kidney failure, unspecified (principal); I13.0 Hypertensive heart and chronic kidney disease with heart failure and stage 1 through stage 4 chronic kidney disease, or unspecified chronic kidney disease; I50.9 Heart failure, unspecified; N18.9 Chronic kidney disease, unspecified; K21.9 Gastro-esophageal reflux disease without esophagitis; R79.1 Abnormal coagulation profile; E78.5 Hyperlipidemia, unspecified; I48.91 Unspecified atrial fibrillation; J44.9 Chronic obstructive pulmonary disease, unspecified; E11.21 Type 2 diabetes mellitus with diabetic nephropathy; E11.22 Type 2 diabetes mellitus with diabetic chronic kidney disease; I25.10 Atherosclerotic heart disease of native coronary artery without angina pectoris; Z88.0 Allergy status to penicillin; Z79.4 Long term (current) use of insulin; Z79.899 Other long term (current) drug therapy; Z79.82 Long term (current) use of aspirin; Z79.01 Long term (current) use of anticoagulants
CPT/HCPCS: 36415; 71045; 82550; 82553; 83605; 83880; 84100; 84484; 85379; 85610; 87040; 93005; 96374; 99285; A9270-GY; J1940

== ENCOUNTER 2019-03-28 16:46 | Emergency (ER) | payer MEDICARE, OTHER ==
[2019-03-28] MEDS ORDERED: Morphine 2 MG/ML Syringe IVPUSH ONE ×2 (17:53→19:24)
[2019-03-28] MEDS ORDERED: Ondansetron 4 MG/2 ML SDV IVPUSH ONE (17:53)
[2019-03-28] MEDS ORDERED: Sodium Chloride 0.9% 10 ML Syringe FLUSH PRN (17:53)
[2019-03-28 18:00] LABS: CHLORIDE,CL 98 mmol/L (98-107); SODIUM,NA 140 mmol/L (136-145)
--- NOTE | 2019-03-28 18:12 | EDM.PDOC ---
ED HPI GENERAL MEDICAL PROBLEM - General Chief Complaint: Lower Extremity Injury/Pain Stated Complaint: fall Time Seen by Provider: 03/28/19 16:48 Source of Information: Reports: Patient, Other ([facility] home staff) History Limitations: Reports: Other (Patient is poor with history) - History of Present Illness INITIAL COMMENTS - FREE TEXT/NARRATIVE: Patient sent for evaluation of right hip pain after he managed to slip out of his chair and fell to floor. Is not able to ambulate. Full Bul[place] lift. Only complaint is right hip pain, however he did bruise his right eye. Denies vision change in affected eye. Denies pain in HEENT/neck area. No jaw pain, able to move jaw well. No headache. Has chronic shortness of breath/CO2 retainer. Denies any baseline respiratory change. Is usually on 1L O2 per NC per previous ER note per recommendation of Darion. It is advised not to give additional O2 due to severe retention of CO2. No new chest or back pain. Only joint pain/ limb pain complaint is right hip pain. Denies other acute limb pain/injury. Right Hip Pain Score (Numeric/FACES): 6 - Related Data Allergies Allergy/AdvReac Type Severity Reaction Status Date / Time Penicillins Allergy Cannot Verified 07/30/18 18:27 Remember Home Meds: Home Meds Bisacodyl [Laxative] 5 - 10 mg PO DAILY PRN 10/02/14 [History] Desonide [Desonide 0.05%] 1 applic TP BID PRN 10/02/14 [History] Dextran 70/Hypromellose [Artificial Tears Eye Drops] 1 drop OP BID PRN 10/02/14 [History] Insulin Glarg,Human.Rec.Analog [LantUS] 30 unit SUBCUT DAILY@0810/02/14 [ History] Insulin Glarg,Human.Rec.Analog [LantUS] 30 unit SUBCUT DAILY@199910/02/14 [ History] Metoclopramide HCl [Reglan] 10 mg PO QID 10/02/14 [History] Omeprazole 20 mg PO BID 10/02/14 [History] Polyethylene Glycol 3350 [Miralax] 17 gm PO Q3H PRN 10/02/14 [History] Acetaminophen [Tylenol Arthritis] 650 mg PO BID 01/26/16 [History] Loratadine 10 mg PO DAILY PRN 01/26/16 [History] Magnesium Hydroxide [Milk of Magnesia] 30 ml PO DAILY PRN 01/26/16 [History] Nitroglycerin 0.4 mg SL ASDIRECTED PRN 01/26/16 [History] Sennosides/Docusate Sodium [Senna-S] 2 each PO BID 01/26/16 [History] Calcium Carbonate [Tums Extra Strength] 750 mg PO Q6HR PRN 03/20/16 [History] atorvaSTATin [Lipitor] 40 mg PO 1800 05/20/16 [History] Acetaminophen [Tylenol] 650 mg PO Q4H PRN 07/30/18 [History] Allopurinol [Zyloprim] 200 mg PO DAILY 07/30/18 [History] Aloe Vera/Sodium Chloride [[place] Saline Nasal Gel] 1 applic LOVELY ASDIRECTED PRN [History] Alum Hydrox/Mag Hydrox/Simeth [Mag-Al Plus] 30 ml PO TID PRN 07/30/18 [History] Budesonide/Formoterol Fumarate [Symbicort 80-4.5 Mcg Inhaler] 1 puff IH BID [History] Bumetanide 2 mg PO BID 07/30/18 [History] Insulin Aspart [NovoLOG] 15 unit SQ BIDMEALS 07/30/18 [History] Ipratropium/Albuterol Sulfate [Iprat-Albut 0.5-3(2.5) MG/3 ML] 3 ml IH Q4H PRN 07/30/18 [History] Ipratropium/Albuterol Sulfate [Iprat-Albut 0.5-3(2.5) MG/3 ML] 3 ml IH TID 07/30 [History] Melatonin 10 mg PO BEDTIME 07/30/18 [History] Aspirin 1 tab PO DAILY 08/16/18 [History] Glycerin/Witch Opal Kimberly [Hemorrhoidal Pads] 1 - 2 each TP ASDIRECTED PRN 08/16 [History] Phenyleph/Pramoxin/Glycr/w.Pet [Hemorrhoidal Cream] 1 applic RECTAL BID PRN 05/24 [History] Phenylephrine HCl [Sudogest PE] 1 tab PO Q4HR PRN 08/16/18 [History] Warfarin [Coumadin] 4 mg PO DAILY@199908/16/18 [History] Carvedilol [Coreg] 12.5 mg PO BID 03/28/19 [History] Cholecalciferol (Vitamin D3) [D-1999] 2,000 unit PO DAILY 03/28/19 [History] Isosorbide Mononitrate [Isosorbide Mononitrate ER] 60 mg PO DAILY 03/28/19 [ History] Potassium Chloride [Klor-Con M20] 20 meq PO TID 03/28/19 [History] Theophylline [Theophylline Anhydrous] 300 mg PO DAILY 03/28/19 [History] Warfarin Sodium [Coumadin] 4 mg PO DAILY@1800 03/28/19 [History] cloNIDine HCl [Catapres] 0.2 mg PO BID 03/28/19 [History] hydrALAZINE [Apresoline] 50 mg PO Q8H 03/28/19 [History] metOLazone [Metolazone] 2.5 mg PO Q2D 03/28/19 [History] traZODone HCl [Trazodone HCl] 50 mg PO DAILY@199903/28/19 [History] Past Medical History HEENT History: Reports: Allergic Rhinitis, Other (See Below) Other HEENT History: Dry eye syndrome, Sicca syndrome Cardiovascular History: Reports: Afib, Arrhythmia, CAD, Cardiomyopathy, Heart Failure, High Cholesterol, Hypertension, [place], Pacemaker, Pulmonary Hypertension, PVD, Other (See Below). Denies: Aneurysm, Blood Clots/VTE/DVT Other Cardiovascular History: History of PVCs and cardiomegaly with recurrent CHF and dependent edema, distant [place] with date unknown and no apparent procedures performed other than pacemaker placement. Respiratory History: Reports: Asthma, Bronchitis, Recurrent, COPD, Intubation, Previous, SOB, Other (See Below). Denies: Intubation, Difficult, PE, Pneumothorax, Sleep Apnea, TB Other Respiratory History: CO2 retention. Gastrointestinal History: Reports: Cholelithiasis, Chronic Constipation, Chronic Diarrhea, Gastritis, GERD, Other (See Below). Denies: PUD Other Gastrointestinal History: Hepatomegaly with history of obesity and hyperlipidemia, umbilical hernia Genitourinary History: Reports: Acute Renal Failure, BPH, Chronic Renal Insuffiency, Diabetic Nephropathy, Other (See Below) Other Genitourinary History: Acute renal failure on 07/30/18. Stage III History diabetic nephropathy/renal insufficiency Musculoskeletal History: Reports: Amputation, Arthritis, Fracture, Gout, Neck Pain, Chronic, Osteoarthritis, Osteoporosis, Other (See Below) Other Musculoskeletal History: Amputations of the right foot as below secondary to osteomyelitis/diabetic foot ulcer likely pseudomonas, Dupuytren contracture, left seventh and eighth rib fractures 03/09/14 Neurological History: Reports: Neuropathy, Diabetic, Neuropathy, Peripheral, TIA , Other (See Below) Other Neuro History: Recurrent TIAs without deficit Psychiatric History: Reports: Addiction, Anxiety, Depression Other Psychiatric History: ALCOHOL DEPENDENCE, chronic narcotic use secondary to chronic pain syndrome Endocrine/Metabolic History: Reports: Diabetes, Type II, IDDM, Obesity/BMI 30+, Osteoporosis, Vitamin D Deficiency, Other (See Below). Denies: Diabetes, Type I , Diabetes Mellitus, Type 3c, Hypothyroidism Other Endocrine/Metabolic History: Recurrent hypokalemia and hyperkalemia likely secondary to CHF/medical therapy. Hypomagnesemia. Hematologic History: Reports: None. Denies: Anemia, Iron Deficiency Immunologic History: Reports: None. Denies: AIDS, HIV, SLE Dermatologic History: Reports: Cellulitis, Chronic Cellulitis, Decubitus Ulcer, Seborrheic Dermatitis, Venous Stasis Dermatitis, Other (See Below) Other Dermatologic History: Patient with history of recurrent diabetic ulcers including severe diabetic foot ulcer of the right foot including osteomyelitis requiring amputation as below - Infectious Disease History Infectious Disease History: Reports: Chicken Pox, Measles, Other (See Below) Other Infectious Disease History: Pseudomonas of the right foot - Past Surgical History HEENT Surgical History: Reports: Oral Surgery, Other (See Below) Other HEENT Surgeries/Procedures: Complete teeth extraction Musculoskeletal Surgical History: Reports: Amputation, Other (See Below) Other Musculoskeletal Surgeries/Procedures:: Amputations of digits #2 and 3 of the right foot secondary to osteomyelitis and diabetic foot ulcer likely secondary to Pseudomonas. - Past Imaging History Past Imaging History: Reports: Cardiac Echo (Inadequate echocardiogram on ), CAT Scan (Abdomen and pelvis on 10/02/14.), Ultrasound (Renal ultrasound on 01/12/14. Gallbladder ultrasound on 10/03/04.), Venous Doppler (Left leg on .) Social & Family History - Family History Family Medical History: Unobtainable - Tobacco Use Smoking Status *Q: Unknown Ever Smoked - Living Situation & Occupation Living situation: Reports: Extended Care Facility ([facility] in [place]) Occupation: Retired Review of Systems - Review of Systems Review Of Systems: ROS reveals no pertinent complaints other than HPI. ED EXAM, GENERAL - Physical Exam Exam: See Below Exam Limited By: Physical Impairment (morbidly obese/cannot move well on own/ pain from right hip) General Appearance: Alert, No Apparent Distress (unless right hip movement initiated), Obese Eye Exam: Right Eye: Other (Swelling and bruising/abrasion noted around upper and lower lids right eye, subconjunctival bleeding noted medially, globe appears intact, pt denies vision changes in either eye. Nontender with palpation of globe/orbit/cheeks/nose/forehead), Left Eye: PERRL, Bilateral Eye: EOMI Ears: Normal External Exam Nose: No: Nasal Deformity, Nasal Swelling, Nasal Drainage Throat/Mouth: Normal Lips, Normal Voice (for patient), No Airway Compromise Head: Other (see above. Face/head nontender with palpation) Neck: Supple, Non-Tender. No: Tender Lateral, Tender Midline Respiratory/Chest: No Respiratory Distress, Chest Non-Tender, Decreased Breath Sounds (throughout), Accessory Muscle Use (has mild increased abdominal effort with breathing, worse when laying flat, better when sitting at 45 degree angle) . No: Rhonchi, Wheezing, Stridor, Retractions Cardiovascular: Irregularly Irregular GI/Abdominal: Soft, Non-Tender (Male) Exam: Other (no obvious abnormalities noted during bright insertion) Rectal (Males) Exam: Deferred Back Exam: Other (no obvious tenderness however limited exam due to mobility issues when patient sitting in chair and laying in ER bed) Extremities: Leg Pain (right hip area.), Other (Bilateral lower leg edema and venous stasis changes noted. Foot coverings/socks left in place. Cap refill symetric lower extremities bilaterally. ). No: Mottled, Pallor Neurological: Alert, Other (appears to answer questions appropriately) Psychiatric: Other (grumpy, swearing whenever moved during exam/radiology studies) Skin Exam: Ecchymosis (right eye area/hands/fingers right greater than left. Patient denies pain in hands/arms/shoulders. ) Course - Vital Signs Last Recorded V/S: Last Vital Signs Temp 36.8 C 03/28/19 16:46 Pulse 70 09/23/19 19:01 Resp 18 03/28/19 19:01 BP 158/76 H 03/28/19 19:01 Pulse Ox 88 L 03/28/19 16:46 - Orders/Labs/Meds Orders: Active Orders 24 hr Category Date Time Status Bright Catheter Insertion [Insert Urinary Catheter] [OM. Care 03/28/19 18:00 Ordered PC] Q24H Urinary Catheter Assessment [RC] ASDIRECTED Care 03/28/19 17:53 Ordered Head wo Cont [CT] Stat Exams 03/28/19 17:52 Ordered Hip Min 2V or 3V w Pelvis Rt [CR] Stat Exams 03/28/19 16:56 Ordered Max Facial Sinus wo Cont [CT] Stat Exams 03/28/19 17:52 Taken Morphine Med 03/28/19 19:24 Once 2 mg IVPUSH ONETIME ONE Sodium Chloride 0.9% [Saline Flush] Med 03/28/19 17:53 Ordered 10 ml FLUSH ASDIRECTED PRN Saline Lock Insert [OM.PC] Routine Oth 03/28/19 17:53 Ordered Medication Orders Sodium Chloride (Saline Flush) 10 ml FLUSH ASDIRECTED PRN PRN Reason: Keep Vein Open Labs: Laboratory Tests 03/28/19 03/28/19 03/28/19 Range/Units 17:35 17:35 17:35 WBC 15.7 H (4.0-10.2) K/uL RBC 4.28 L (4.33-5.41) M/uL Hgb 12.4 L (13.1-16.8) g/dL Hct 40.3 (39.0-49.0) % MCV 94.2 (84.0-98.0) fL MCH 29.0 (28.2-33.3) pg MCHC 30.8 L (31.7-36.0) g/dL RDW 14.6 H (11.2-14.1) % Plt Count 277 (150-350) K/uL Neut % (Auto) 81.5 H (45.0-80.0) % Lymph % (Auto) 9.7 L (10.0-50.0) % [place] % (Auto) 7.9 (2.0-14.0) % Eos % (Auto) 0.8 (0.0-5.0) % Baso % (Auto) 0.1 (0.0-2.0) % Neut # (Auto) 12.79 H (1.40-7.00) K/uL Lymph # (Auto) 1.52 (0.50-3.50) K/uL [place] # (Auto) 1.24 H (0.00-1.00) K/uL Eos # (Auto) 0.12 (0.00-0.50) K/uL Baso # (Auto) 0.02 (0.00-0.20) K/uL PT 19.2 H (9.5-12.0) SEC INR 1.8 Sodium 140 (136-145) mmol/L Potassium 3.6 (3.5-5.1) mmol/L Chloride 98 (98-107) mmol/L Carbon Dioxide 33.6 H (21.0-32.0) mmol/L BUN 28 H (7-18) mg/dL Creatinine 1.17 (0.51-1.17) mg/dL Est Cr Clr Drug Dosing 59.59 mL/min Estimated GFR (MDRD) > 60 mL/min Glucose 192 H (74-106) mg/dL Calcium 9.8 (8.5-10.1) mg/dL Total Bilirubin 0.8 (0.2-1.0) mg/dL AST 18 (15-37) U/L ALT 23 (12-78) U/L Alkaline Phosphatase 85 (46-116) IU/L Total Protein 8.1 (6.4-8.2) g/dL Albumin 3.6 (3.4-5.0) g/dL Meds: Medications Generic Name Dose Route Start Last Admin Trade Name Freq PRN Reason Stop Dose Admin Sodium Chloride 10 ml 03/28/19 17:53 Saline Flush FLUSH ASDIRECTED PRN Keep Vein Open Discontinued Medications Generic Name Dose Route Start Last Admin Trade Name Freq PRN Reason Stop Dose Admin Morphine Sulfate 2 mg 03/28/19 17:53 03/28/19 18:48 Morphine IVPUSH 03/28/19 17:54 2 mg ONETIME ONE Administration Ondansetron HCl 4 mg 03/28/19 17:53 03/28/19 18:48 Zofran IVPUSH 03/28/19 17:54 4 mg ONETIME ONE Administration - Radiology Interpretation Free Text/Narrative:: Right hip xray confirmed fracture. Head CT performed along with facial bones study given mechanism of injury/right eye injury/Warfarin use. CT Results Date: 03/28/19 CT Results Time: 19:25 (Nondisplaced infraorbital fracture, extraconal hematoma , blood in right maxillary sinus) - Re-Assessments/Exams Free Text/Narrative Re-Assessment/Exam: 03/28/19 18:53 Right hip fracture confirmed. INR subtherapeutic at 1.8 CBC showed WBC 15.7 Hgb 12.4 Chem showed overall good renal function today. Blood sugar 192 Call placed to [facility] and patient discussed with YOGESH Zarate. [facility] declined patient as he requires acute orthopedic evaluation. Call then placed to [facility] and it was arranged to send patient to [facility] with as accepting MD. Bright cath placed. IV ordered along with MS and Ivonne. Transferred by EMS to [facility]. Departure - Departure Time of Disposition: 19:25 Disposition: DC/Tfer to Acute Hospital 02 Condition: Fair Clinical Impression: Fall from chair, initial encounter Closed right hip fracture Qualifiers: Encounter type: initial encounter Qualified Code(s): S72.001A - Fracture of unspecified part of neck of right femur, initial encounter for closed fracture Contusion, eye, right Qualifiers: Encounter type: initial encounter Qualified Code(s): S05.11XA - Contusion of eyeball and orbital tissues, right eye, initial encounter Orbital fracture Qualifiers: Encounter type: initial encounter Fracture type: closed Qualified Code(s): S02.80XA - Fracture of other specified skull and facial bones, unspecified side , initial encounter for closed fracture - Discharge Information *PRESCRIPTION DRUG MONITORING PROGRAM REVIEWED*: Not Applicable *COPY OF PRESCRIPTION DRUG MONITORING REPORT IN PATIENT LEXII: Not Applicable Referrals: Sheets-Chloé De La Rosa MD [Primary Care Provider] - Forms: ED Department Discharge - My Orders Last 24 Hours: My Active Orders 03/28/19 16:56 Hip Min 2V or 3V w Pelvis Rt [CR] Stat 03/28/19 17:52 Head wo Cont [CT] Stat Max Facial Sinus wo Cont [CT] Stat 03/28/19 17:53 Urinary Catheter Assessment [RC] ASDIRECTED Sodium Chloride 0.9% [Saline Flush] 10 ml FLUSH ASDIRECTED PRN Saline Lock Insert [OM.PC] Routine 03/28/19 18:00 Bright Catheter Insertion [Insert Urinary Catheter] [OM.PC] Q24H 03/28/19 19:24 Morphine 2 mg IVPUSH ONETIME ONE - Assessment/Plan Last 24 Hours: My Active Orders 03/28/19 16:56 Hip Min 2V or 3V w Pelvis Rt [CR] Stat 03/28/19 17:52 Head wo Cont [CT] Stat Max Facial Sinus wo Cont [CT] Stat 03/28/19 17:53 Urinary Catheter Assessment [RC] ASDIRECTED Sodium Chloride 0.9% [Saline Flush] 10 ml FLUSH ASDIRECTED PRN Saline Lock Insert [OM.PC] Routine 03/28/19 18:00 Bright Catheter Insertion [Insert Urinary Catheter] [OM.PC] Q24H 03/28/19 19:24 Morphine 2 mg IVPUSH ONETIME ONE
[2019-03-28 19:06] VITALS: BP 158/76; PULSE 70
== END 2019-03-28 19:45 ==
LOC: LL.ED 16:46
DX: S02.80XA Fracture of other specified skull and facial bones, unspecified side, initial encounter for closed fracture (principal); S72.001A Fracture of unspecified part of neck of right femur, initial encounter for closed fracture; S05.11XA Contusion of eyeball and orbital tissues, right eye, initial encounter; I13.0 Hypertensive heart and chronic kidney disease with heart failure and stage 1 through stage 4 chronic kidney disease, or unspecified chronic kidney disease; E11.22 Type 2 diabetes mellitus with diabetic chronic kidney disease; N18.3 Chronic kidney disease, stage 3 (moderate); I50.9 Heart failure, unspecified; F32.9 Major depressive disorder, single episode, unspecified; E11.21 Type 2 diabetes mellitus with diabetic nephropathy; F41.9 Anxiety disorder, unspecified; E66.9 Obesity, unspecified; J45.909 Unspecified asthma, uncomplicated; M19.90 Unspecified osteoarthritis, unspecified site; Z88.0 Allergy status to penicillin; Z79.899 Other long term (current) drug therapy; Z79.01 Long term (current) use of anticoagulants; Z79.4 Long term (current) use of insulin; Z79.82 Long term (current) use of aspirin; Z86.73 Personal history of transient ischemic attack (TIA), and cerebral infarction without residual deficits; Z79.51 Long term (current) use of inhaled steroids; Z68.42 Body mass index [BMI] 45.0-49.9, adult; W07.XXXA Fall from chair, initial encounter
CPT/HCPCS: 36000; 36415; 51702; 70450; 70486; 80053; 85025; 85610; 96374; 96375; 96376; 99285-25; J2270; J2405

== ENCOUNTER 2021-06-26 10:06 | Emergency (ER) | payer OTHER, MEDICARE ==
[2021-06-26] MEDS ORDERED: Sodium Chloride 0.9% 10 ML Syringe FLUSH PRN (10:17)
--- NOTE | 2021-06-26 10:30 | EDM.PDOC ---
ED HPI GENERAL MEDICAL PROBLEM - General Chief Complaint: General Stated Complaint: back pain, SOB Time Seen by Provider: 06/26/21 10:08 Source of Information: Reports: Patient, Old Records, RN History Limitations: Reports: Other (mild cognitive impairment) - History of Present Illness Onset: Today Onset Date: 06/26/21 Onset Time: 08:00 Duration: Hour(s):, Constant Location: Reports: Back Quality: Reports: Ache, Dull Severity: Mild Improves with: Reports: Immobilization Worsens with: Reports: Other (palpation) Context: Reports: Other (unknown) Associated Symptoms: Reports: No Other Symptoms Treatments TURN SUPERVISOR: Reports: Acetaminophen - Related Data Allergies Allergy/AdvReac Type Severity Reaction Status Date / Time Penicillins Allergy Cannot Verified 06/26/21 10:19 Remember Home Meds: Home Meds Bisacodyl [Laxative] 5 mg PO DAILY PRN 10/02/14 [History] Desonide [Desonide 0.05%] 1 applic TOP BID PRN 10/02/14 [History] Dextran 70/Hypromellose [Artificial Tears Eye Drops] 1 drop EYEBOTH BID PRN 10/02/14 [History] Insulin Glarg,Human.Rec.Analog [LantUS] 10 unit SUBCUT Q12HR 10/02/14 [History] Metoclopramide HCl [Reglan] 10 mg PO QID@08,12,17,20 10/02/14 [History] polyethylene glycoL 3350 [Miralax] 17 gm PO DAILY 10/02/14 [History] Acetaminophen [Tylenol Arthritis] 650 mg PO BID@0800,1700 01/26/16 [History] Nitroglycerin 0.4 mg SL ASDIRECTED PRN MDD 3 times 01/26/16 [History] Sennosides/Docusate Sodium [Senna-S] 2 each PO Q12HR 01/26/16 [History] Calcium Carbonate [Tums Extra Strength] 750 mg PO Q6HR PRN 03/20/16 [History] atorvaSTATin [Lipitor] 40 mg PO DAILY@1700 05/20/16 [History] Acetaminophen [Tylenol] 650 mg PO Q4H PRN MDD 3,000 mg in 24 hours 07/30/18 [History] Aloe Vera/Sodium Chloride [[place] Saline Nasal Gel] 1 applic LOVELY ASDIRECTED PRN 07/30/18 [History] Alum Hydrox/Mag Hydrox/Simeth [Mag-Al Plus] 30 ml PO TID PRN 07/30/18 [History] Budesonide/Formoterol Fumarate [Symbicort 80-4.5 Mcg Inhaler] 2 puff IH Q12HR 07/30/18 [History] Bumetanide 4 mg PO BID@0800,1200 07/30/18 [History] Insulin Aspart [NovoLOG] 7 unit SQ TIDMEALS 07/30/18 [History] Ipratropium/Albuterol Sulfate [Iprat-Albut 0.5-3(2.5) MG/3 ML] 3 ml INH Q4H PRN 07/30/18 [History] Melatonin 5 mg PO DAILY@229907/30/18 [History] Aspirin 1 tab PO DAILY 08/16/18 [History] Phenyleph/Pramoxin/Glycr/w.Pet [Hemorrhoidal Cream] 1 applic RECTAL BID PRN 08/16/18 [History] Phenylephrine HCl [Sudogest PE] 10 mg PO Q4HR PRN 08/16/18 [History] Cholecalciferol (Vitamin D3) [D-1999] 2,000 unit PO DAILY 03/28/19 [History] Isosorbide Mononitrate [Isosorbide Mononitrate ER] 60 mg PO DAILY 03/28/19 [History] Theophylline [Theophylline Anhydrous] 300 mg PO Q12HR 03/28/19 [History] carvediloL [Coreg] 12.5 mg PO BID 03/28/19 [History] cloNIDine HCL [Catapres] 0.2 mg PO Q12HR 03/28/19 [History] hydrALAZINE [Apresoline] 50 mg PO TID@0800,1200,199903/28/19 [History] traZODone HCl [Trazodone HCl] 50 mg PO DAILY@23003/28/19 [History] Albuterol [Ventolin HFA] 2 puff INH Q4HR PRN 06/26/21 [History] Bisacodyl [Laxative Suppository] 10 mg RECTAL DAILY PRN 06/26/21 [History] Carboxymethylcellulose Sodium [Refresh Liquigel 1%] 1 drop EYEBOTH BID PRN 06/26/21 [History] Ferrous Sulfate 325 mg PO DAILY 06/26/21 [History] Fluticasone Propionate [Flonase] 2 spray NASBOTH DAILY 06/26/21 [History] Gabapentin [Neurontin] 300 mg PO BEDTIME 06/26/21 [History] Methyl Salicylate/Menthol [Muscle Rub] 1 applic TOP QID PRN 06/26/21 [History] Non-Formulary Medication [NF Drug] 1 packet PO BIDMEALS 06/26/21 [History] Sertraline [Zoloft] 50 mg PO DAILY 06/26/21 [History] Sodium Chloride [Saline Nasal [place]] 2 spray NASBOTH Q2HR PRN 06/26/21 [History] Warfarin [Coumadin] 5 mg PO QPMX2D 06/26/21 [History] oxyCODONE 5 mg PO BID PRN 06/26/21 [History] Past Medical History HEENT History: Reports: Allergic Rhinitis, Other (See Below) Other HEENT History: Dry eye syndrome, Sicca syndrome Cardiovascular History: Reports: Afib (paroxysmal), Arrhythmia, CAD, Cardi omyopathy, Heart Failure (diastolic), High Cholesterol, Hypertension, MD (debra eunknown), Pacemaker, Pulmonary Hypertension, PVD, Other (See Below) (lymphedema BLE). Denies: Aneurysm, Blood Clots/VTE/DVT Other Cardiovascular History: PVD Respiratory History: Reports: Asthma, Bronchitis, Recurrent, COPD, Intubation, Difficult, Intubation, Previous, PE, Pneumothorax, Sleep Apnea (obesity hypoventilation), TB, Other (See Below) (oxygen dependent) Other Respiratory History: chronic respiratory failure with hypoxia and hyper capnia Gastrointestinal History: Reports: Cholelithiasis, Chronic Constipation, Chronic Diarrhea, Gastritis, GERD (w/out esophagitis), Other (See Below). Denies: PUD Other Gastrointestinal History: Hepatomegaly with history of obesity and hyperlipidemia, umbilical hernia Genitourinary History: Reports: Acute Renal Failure, BPH, Chronic Renal Insuffiency (stage 3), Diabetic Nephropathy, Other (See Below) (constipation) Other Genitourinary History: internal and external hemorrhoids Musculoskeletal History: Reports: Amputation, Arthritis, Back Pain, Chronic, Fracture, Gout, Neck Pain, Chronic (cervical disc degeneration), Osteoarthritis, Osteoporosis, Other (See Below) Other Musculoskeletal History: Amputations of the right foot as below secondary to osteomyelitis/diabetic foot ulcer likely pseudomonas, Dupuytren contracture, left seventh and eighth rib fractures 03/09/14 Neurological History: Reports: Neuropathy, Diabetic, Neuropathy, Peripheral, TIA, Other (See Below) (chronic pain. insomnia) Other Neuro History: Recurrent TIAs without deficit Psychiatric History: Reports: Addiction (hx of etoh abuse), Anxiety, Depression Other Psychiatric History: ALCOHOL DEPENDENCE, chronic narcotic use secondary to chronic pain syndrome Endocrine/Metabolic History: Reports: Diabetes, Type I, Diabetes, Type II, Diabetes Mellitus, Type 3c, Hypothyroidism, IDDM, Obesity/BMI 30+, Osteoporosis, Vitamin D Deficiency, Other (See Below) Other Endocrine/Metabolic History: Recurrent hypokalemia and hyperkalemia likely secondary to CHF/medical therapy. Hypomagnesemia. chronic hypervolumic hyponatremia Hematologic History: Reports: Anemia (of CKD stage III), Anticoagulation Therapy. Denies: Iron Deficiency Immunologic History: Reports: None. Denies: AIDS, HIV, SLE Dermatologic History: Reports: Chronic Cellulitis, Decubitus Ulcer (bilateral feet), Seborrheic Dermatitis, Venous Stasis Dermatitis, Other (See Below) Other Dermatologic History: Patient with history of recurrent diabetic ulcers i ncluding severe diabetic foot ulcer of the right foot including osteomyelitis requiring amputation as below - Infectious Disease History Infectious Disease History: Reports: Chicken Pox, Measles, Other (See Below) Other Infectious Disease History: Pseudomonas of the right foot - Past Surgical History HEENT Surgical History: Reports: Oral Surgery, Other (See Below) Other HEENT Surgeries/Procedures: Complete teeth extraction Musculoskeletal Surgical History: Reports: Amputation, Other (See Below) Other Musculoskeletal Surgeries/Procedures:: Amputations of digits #2 and 3 of the right foot secondary to osteomyelitis and diabetic foot ulcer likely secondary to Pseudomonas. - Past Imaging History Past Imaging History: Reports: Cardiac Echo (Inadequate echocardiogram on 05/20/16), CAT Scan (Abdomen and pelvis on 10/02/14.), Ultrasound (Renal ultrasound on 01/12/14. Gallbladder ultrasound on 10/03/04.), Venous Doppler (Left leg on 08/04/12.) Social & Family History - Family History Family Medical History: No Pertinent Family History - Tobacco Use Tobacco Use Status *Q: Never Tobacco User Tobacco Use Within Last Twelve Months: No - Caffeine Use Caffeine Use: Reports: None - Alcohol Use Alcohol Use History: Yes Alcohol Use in Last Twelve Months: No - Recreational Drug Use Recreational Drug Use: No Drug Use in Last 12 Months: No - Sexual History Sexual History: Reports: Opposite Sex Partner (not currently sexually active) - Living Situation & Occupation Living situation: Reports: Extended Care Facility ([facility] in [place]) Occupation: Disabled ED ROS GENERAL - Review of Systems Review Of Systems: See Below Constitutional: Reports: No Symptoms HEENT: Reports: No Symptoms Respiratory: Reports: Shortness of Breath. Denies: Wheezing, Pleuritic Chest Pain, Cough, Sputum Cardiovascular: Reports: Edema. Denies: Chest Pain, Palpitations, Syncope Endocrine: Reports: No Symptoms GI/Abdominal: Reports: No Symptoms : Reports: No Symptoms Musculoskeletal: Reports: Back Pain (thoracic spine) Skin: Reports: No Symptoms Neurological: Reports: No Symptoms Psychiatric: Reports: No Symptoms Hematologic/Lymphatic: Reports: Easy Bruising Immunologic: Reports: No Symptoms Free Text/Narrative/Comment: total turner lift at baseline ED EXAM, GENERAL - Physical Exam Exam: See Below Exam Limited By: No Limitations General Appearance: Alert, Mild Distress Eye Exam: Bilateral Eye: EOMI Ears: Normal External Exam Nose: Normal Inspection Throat/Mouth: Normal Inspection Head: Atraumatic, Normocephalic, Other (scaling scalp) Neck: Normal Inspection, Supple Respiratory/Chest: Respiratory Distress (mild when lying flat and rolling for back inspection, resolved sitting up), Decreased Breath Sounds (2/2 body habitus). No: Crackles, Rales, Rhonchi, Wheezing, Retractions Cardiovascular: Tachycardia (100-110), Systolic Murmur, Irregularly Irregular GI/Abdominal: Soft, No Mass, Hernia (umbilicle. easily reduced), Other (Obese). No: Guarding (Male) Exam: Deferred Rectal (Males) Exam: Deferred Back Exam: Paraspinal Tenderness (T4-T6 tender to deep palpation. no bony tenderness noted. ROM baseline) Extremities: Pedal Edema (3+ to BLE) Neurological: Alert, Oriented Psychiatric: Normal Affect, Normal Mood Skin Exam: Warm, Dry Course - Vital Signs Last Recorded V/S: Last Vital Signs Temp 98.5 F 06/26/21 10:17 Pulse 89 06/26/21 11:00 Resp 25 H 06/26/21 11:00 BP 168/70 H 06/26/21 11:00 Pulse Ox 92 L 06/26/21 11:00 - Orders/Labs/Meds Orders: Active Orders 24 hr Category Date Time Status Blood Glucose Check, Bedside [RC] ONETIME Care 06/26/21 10:17 Active Oxygen Therapy [RC] PRN Care 06/26/21 10:22 Active Peripheral IV Care [RC] . DIRECTED Care 06/26/21 10:26 Active Pulse Oximetry [RC] CONTINUOUS Care 06/26/21 10:22 Active Up With Assistance [RC] ASDIRECTED Care 06/26/21 10:17 Active Vital Signs [RC] We@0800 Care 06/26/21 10:17 Active Nothing per Oral Now Diet [DIET] Diet 06/26/21 Breakfast Active Chest 1V Frontal [CR] Stat Exams 06/26/21 10:17 Taken Sodium Chloride 0.9% [Saline Flush] Med 06/26/21 10:17 Active 10 ml FLUSH ASDIRECTED PRN Peripheral IV Insertion Adult [OM.PC] Stat Oth 06/26/21 10:17 Ordered Medication Orders Sodium Chloride (Sodium Chloride 0.9% 10 Ml Syringe) 10 ml FLUSH ASDIRECTED PRN PRN Reason: Keep Vein Open Labs: Laboratory Tests 06/26/21 06/26/21 06/26/21 Range/Units 10:27 10:27 10:27 WBC 10.1 (4.0-10.2) K/uL RBC 4.07 L (4.33-5.41) M/uL Hgb 12.4 L (13.1-16.8) g/dL Hct 39.8 (39.0-49.0) % MCV 97.8 (84.0-98.0) fL MCH 30.5 (28.2-33.3) pg MCHC 31.2 L (31.7-36.0) g/dL RDW 14.8 H (11.2-14.1) % Plt Count 177 (150-350) K/uL Neut % (Auto) 80.1 H (45.0-80.0) % Lymph % (Auto) 9.7 L (10.0-50.0) % Benzie % (Auto) 8.5 (2.0-14.0) % Eos % (Auto) 1.3 (0.0-5.0) % Baso % (Auto) 0.4 (0.0-2.0) % Neut # (Auto) 8.08 H (1.40-7.00) K/uL Lymph # (Auto) 0.98 (0.50-3.50) K/uL Benzie # (Auto) 0.86 (0.00-1.00) K/uL Eos # (Auto) 0.13 (0.00-0.50) K/uL Baso # (Auto) 0.04 (0.00-0.20) K/uL PT (9.6-11.3) SEC INR D-Dimer, Quantitative (0-400) ng/mL Sodium (136-145) mmol/L Potassium (3.5-5.1) mmol/L Chloride (98-107) mmol/L Carbon Dioxide (21.0-32.0) mmol/L Anion Gap (7-15) meq/L BUN (7-18) mg/dL Creatinine (0.51-1.17) mg/dL Est Cr Clr Drug Dosing Estimated GFR (MDRD) mL/min Glucose (70-99) mg/dL POC Glucose (70-99) mg/dL Calcium (8.5-10.1) mg/dL Magnesium (1.8-2.4) mg/dL Total Bilirubin (0.2-1.0) mg/dL AST (15-37) U/L ALT (12-78) U/L Alkaline Phosphatase (46-116) IU/L Troponin I High Sens 16 (<=76) ng/L NT-Pro-B Natriuret Pep 1340 H (0-125) pg/mL Total Protein (6.4-8.2) g/dL Albumin (3.4-5.0) g/dL 06/26/21 06/26/21 06/26/21 Range/Units 10:27 10:27 10:27 WBC (4.0-10.2) K/uL RBC (4.33-5.41) M/uL Hgb (13.1-16.8) g/dL Hct (39.0-49.0) % MCV (84.0-98.0) fL MCH (28.2-33.3) pg MCHC (31.7-36.0) g/dL RDW (11.2-14.1) % Plt Count (150-350) K/uL Neut % (Auto) (45.0-80.0) % Lymph % (Auto) (10.0-50.0) % Benzie % (Auto) (2.0-14.0) % Eos % (Auto) (0.0-5.0) % Baso % (Auto) (0.0-2.0) % Neut # (Auto) (1.40-7.00) K/uL Lymph # (Auto) (0.50-3.50) K/uL Benzie # (Auto) (0.00-1.00) K/uL Eos # (Auto) (0.00-0.50) K/uL Baso # (Auto) (0.00-0.20) K/uL PT 19.6 H (9.6-11.3) SEC INR 1.9 D-Dimer, Quantitative 814 H (0-400) ng/mL Sodium 139 (136-145) mmol/L Potassium 4.0 (3.5-5.1) mmol/L Chloride 99 (98-107) mmol/L Carbon Dioxide 32.6 H (21.0-32.0) mmol/L Anion Gap 11.4 (7-15) meq/L BUN 36 H (7-18) mg/dL Creatinine 1.39 H (0.51-1.17) mg/dL Est Cr Clr Drug Dosing TNP Estimated GFR (MDRD) 50 mL/min Glucose 273 H (70-99) mg/dL POC Glucose (70-99) mg/dL Calcium 8.7 (8.5-10.1) mg/dL Magnesium 2.3 (1.8-2.4) mg/dL Total Bilirubin 0.4 (0.2-1.0) mg/dL AST 19 (15-37) U/L ALT 20 (12-78) U/L Alkaline Phosphatase 73 (46-116) IU/L Troponin I High Sens (<=76) ng/L NT-Pro-B Natriuret Pep (0-125) pg/mL Total Protein 7.3 (6.4-8.2) g/dL Albumin 3.2 L (3.4-5.0) g/dL 06/26/21 Range/Units 10:48 WBC (4.0-10.2) K/uL RBC (4.33-5.41) M/uL Hgb (13.1-16.8) g/dL Hct (39.0-49.0) % MCV (84.0-98.0) fL MCH (28.2-33.3) pg MCHC (31.7-36.0) g/dL RDW (11.2-14.1) % Plt Count (150-350) K/uL Neut % (Auto) (45.0-80.0) % Lymph % (Auto) (10.0-50.0) % Benzie % (Auto) (2.0-14.0) % Eos % (Auto) (0.0-5.0) % Baso % (Auto) (0.0-2.0) % Neut # (Auto) (1.40-7.00) K/uL Lymph # (Auto) (0.50-3.50) K/uL Benzie # (Auto) (0.00-1.00) K/uL Eos # (Auto) (0.00-0.50) K/uL Baso # (Auto) (0.00-0.20) K/uL PT (9.6-11.3) SEC INR D-Dimer, Quantitative (0-400) ng/mL Sodium (136-145) mmol/L Potassium (3.5-5.1) mmol/L Chloride (98-107) mmol/L Carbon Dioxide (21.0-32.0) mmol/L Anion Gap (7-15) meq/L BUN (7-18) mg/dL Creatinine (0.51-1.17) mg/dL Est Cr Clr Drug Dosing Estimated GFR (MDRD) mL/min Glucose (70-99) mg/dL POC Glucose 222 H (70-99) mg/dL Calcium (8.5-10.1) mg/dL Magnesium (1.8-2.4) mg/dL Total Bilirubin (0.2-1.0) mg/dL AST (15-37) U/L ALT (12-78) U/L Alkaline Phosphatase (46-116) IU/L Troponin I High Sens (<=76) ng/L NT-Pro-B Natriuret Pep (0-125) pg/mL Total Protein (6.4-8.2) g/dL Albumin (3.4-5.0) g/dL Meds: Medications Generic Name Dose Route Start Last Admin Trade Name Freq PRN Reason Stop Dose Admin Sodium Chloride 10 ml 06/26/21 10:17 Sodium Chloride 0.9% 10 Ml Syringe FLUSH ASDIRECTED PRN Keep Vein Open - Re-Assessments/Exams Free Text/Narrative Re-Assessment/Exam: 06/26/21 10:16 met with patient at bedside. reproducible thoracic back pain. subjective SOB. 3+ pitting edema in BLE. labs ordered. 06/26/21 11:50 CXR: baseline. cardiomegaly. some vascular prominence. no opacities. Ddimer slightly elevated but sedentary patient, elderly, and on anticoagulation currently so no CTA. mild hyperglycemia but pt is diabetic. electrolytes WNL. ProBNP slightly elevated but pt does currently take 4mg PO bumex bid. 3+ pitting edema to BLE. BENNY wraps in place. pt requesting narcotics and referred to PCP. discharge back to [facility]. Departure - Departure Time of Disposition: 11:55 Disposition: DC/Tfer to SNF 03 Condition: Fair Clinical Impression: Muscle strain of upper back - Discharge Information *PRESCRIPTION DRUG MONITORING PROGRAM REVIEWED*: Not Applicable *COPY OF PRESCRIPTION DRUG MONITORING REPORT IN PATIENT LEXII: Not Applicable Referrals: Caroline Schneider PA [Primary Care Provider] - Forms: ED Department Discharge Additional Instructions: musculoskeletal pain - reproducible on palpation of T4-T6 paraspinal muscled. ROM is baseline. likely muscle strain during rolling or transfer. no bony tenderness and no decreased ROM so no need for further imaging at this time. Plan: - OTC acetaminophen 1000mg tid for pain control - Ice 15 minutes on and 45 minutes off to reduce inflammation - if symptoms worsen or fail to improve over the next 2-3 weeks then follow up with PCP - all requests for narcotics were referred to PCP given non acute pain, no injury and hx of chronic neck and back pain. Sepsis Event Note (ED) - Focused Exam Vital Signs: Vital Signs Temp Pulse Resp BP Pulse Ox 06/26/21 11:00 89 25 H 168/70 H 92 L 06/26/21 10:27 98 25 H 160/67 H 95 06/26/21 10:17 98.5 F 92 25 H 164/85 H 96 - Problem List Review Problem List Initiated/Reviewed/Updated: Yes - My Orders Last 24 Hours: My Active Orders 06/26/21 Breakfast Nothing per Oral Now Diet [DIET] 06/26/21 10:17 Blood Glucose Check, Bedside [RC] ONETIME Up With Assistance [RC] ASDIRECTED Vital Signs [RC] We@0800 Chest 1V Frontal [CR] Stat Sodium Chloride 0.9% [Saline Flush] 10 ml FLUSH ASDIRECTED PRN Peripheral IV Insertion Adult [OM.PC] Stat 06/26/21 10:22 Oxygen Therapy [RC] PRN Pulse Oximetry [RC] CONTINUOUS 06/26/21 10:26 Peripheral IV Care [RC] . DIRECTED - Assessment/Plan Last 24 Hours: My Active Orders 06/26/21 Breakfast Nothing per Oral Now Diet [DIET] 06/26/21 10:17 Blood Glucose Check, Bedside [RC] ONETIME Up With Assistance [RC] ASDIRECTED Vital Signs [RC] We@0800 Chest 1V Frontal [CR] Stat Sodium Chloride 0.9% [Saline Flush] 10 ml FLUSH ASDIRECTED PRN Peripheral IV Insertion Adult [OM.PC] Stat 06/26/21 10:22 Oxygen Therapy [RC] PRN Pulse Oximetry [RC] CONTINUOUS 06/26/21 10:26 Peripheral IV Care [RC] . DIRECTED Assessment:: musculoskeletal strain - reproducible on palpation of T4-T6 paraspinal muscled. ROM is baseline. likely muscle strain during rolling or transfer. no bony tenderness and no decreased ROM so no need for further imaging at this time. Plan: - OTC acetaminophen 1000mg tid for pain control - Ice 15 minutes on and 45 minutes off to reduce inflammation - if symptoms worsen or fail to improve over the next 2-3 weeks then follow up with PCP - all requests for narcotics were referred to PCP given non acute pain, no injury and hx of chronic neck and back pain.
[2021-06-26 11:12] LABS: CHLORIDE,CL 99 mmol/L (98-107); SODIUM,NA 139 mmol/L (136-145)
[2021-06-26 11:13] LABS: ANION GAP 11.4 meq/L (7-15)
[2021-06-26 11:47] VITALS: PULSE 89
[2021-06-26 12:02] VITALS: BP 151/85
== END 2021-06-26 12:45 ==
LOC: LL.ED 10:06
DX: S29.012A Strain of muscle and tendon of back wall of thorax, initial encounter (principal); I25.10 Atherosclerotic heart disease of native coronary artery without angina pectoris; I48.91 Unspecified atrial fibrillation; I25.2 Old myocardial infarction; I13.0 Hypertensive heart and chronic kidney disease with heart failure and stage 1 through stage 4 chronic kidney disease, or unspecified chronic kidney disease; E11.22 Type 2 diabetes mellitus with diabetic chronic kidney disease; N18.30 Chronic kidney disease, stage 3 unspecified; I50.9 Heart failure, unspecified; E11.42 Type 2 diabetes mellitus with diabetic polyneuropathy; N40.0 Benign prostatic hyperplasia without lower urinary tract symptoms; J44.9 Chronic obstructive pulmonary disease, unspecified; K21.9 Gastro-esophageal reflux disease without esophagitis; E03.9 Hypothyroidism, unspecified; E66.9 Obesity, unspecified; Z68.30 Body mass index [BMI] 30.0-30.9, adult; Z88.0 Allergy status to penicillin; Z79.4 Long term (current) use of insulin; Z79.899 Other long term (current) drug therapy; Z79.01 Long term (current) use of anticoagulants
CPT/HCPCS: 36415; 71045; 80053; 82947; 83735; 83880; 84484; 85025; 85379; 85610; 93005; 99285-25

== ENCOUNTER 2022-02-15 13:53 | Emergency (ER) | payer MEDICARE ==
[2022-02-15 14:42] LABS: CHLORIDE,CL 92 mmol/L (98-107); SODIUM,NA 135 mmol/L (136-145)
[2022-02-15 14:43] LABS: ANION GAP 7.3 meq/L (7-15); ESTIMATED GFR 55 mL/min (>=60)
[2022-02-15 20:33] VITALS: BP 108/49; PULSE 82
== END 2022-02-15 17:00 ==
LOC: MERGE 13:53 → LL.ED 13:53
DX: R07.89 Other chest pain (principal); E87.1 Hypo-osmolality and hyponatremia; I13.0 Hypertensive heart and chronic kidney disease with heart failure and stage 1 through stage 4 chronic kidney disease, or unspecified chronic kidney disease; N18.30 Chronic kidney disease, stage 3 unspecified; I50.9 Heart failure, unspecified; I25.10 Atherosclerotic heart disease of native coronary artery without angina pectoris; J44.9 Chronic obstructive pulmonary disease, unspecified; K21.9 Gastro-esophageal reflux disease without esophagitis; E66.01 Morbid (severe) obesity due to excess calories; Z88.0 Allergy status to penicillin; Z79.4 Long term (current) use of insulin; Z79.01 Long term (current) use of anticoagulants; Z79.899 Other long term (current) drug therapy
CPT/HCPCS: 36415; 71045; 80053; 84484; 85025; 85610; 93005; 93010; 99284; 99285

== ENCOUNTER 2022-02-17 10:29 | Emergency (ER) | payer OTHER, MEDICARE ==
[2022-02-17] MEDS ORDERED: Sodium Chloride 0.9% 10 ML Syringe FLUSH PRN (10:52)
[2022-02-17] MEDS ORDERED: Sodium Chloride 0.9% 1,000 ML IV ONE (10:53)
[2022-02-17 12:47] LABS: CHLORIDE,CL 92 mmol/L (98-107); SODIUM,NA 136 mmol/L (136-145)
[2022-02-17 12:48] LABS: ESTIMATED GFR 61 mL/min (>=60)
[2022-02-17 17:09] VITALS: BP 161/84; PULSE 82
== END 2022-02-17 17:00 | disposition home health service (06) ==
LOC: LL.ED 10:29 → MERGE 10:29 → LL.ED 17:00
DX: J18.9 Pneumonia, unspecified organism (principal); J98.11 Atelectasis; Z88.0 Allergy status to penicillin; Z79.4 Long term (current) use of insulin; Z79.01 Long term (current) use of anticoagulants; Z79.899 Other long term (current) drug therapy; Z20.822 Contact with and (suspected) exposure to COVID-19
CPT/HCPCS: 36415; 71045; 80053; 81003; 83605; 83735; 83880; 84484; 85025; 93005; 93010; 96360; 96361; 99284; 99285-25; J7030; U0002